=== PATIENT | male | born 1990 | race Hispanic/Latino ===

== ENCOUNTER 2019-07-08 14:00 | Emergency (ER) | payer OTHER ==
[~2019-07-08] VITALS: Ht 180.3 cm; Wt 145.1 kg
[2019-07-08] MEDS ORDERED: IBUPROFEN 200 MG TAB PO STA (14:31)
[2019-07-08] MEDS ORDERED: ALBUTEROL SULF 0.083% NEB SOLN 3 ML NEB NEB STA (14:43)
[2019-07-08] MEDS ORDERED: IPRATROPIUM BROMIDE 0.02% 2.5 ML NEB NEB STA (14:43)
[2019-07-08] MEDS ORDERED: ACETAMINOPHEN 325 MG TAB PO ONE (14:45)
[2019-07-08] MEDS ORDERED: DEXAMETHASONE SOD PHOS 10 MG/1 ML VIAL IM NR (15:00)
[2019-07-08 15:08] LABS: STREPTOCOCCUS GRP A ANTIGEN NEGATIVE (NEGATIVE)
[2019-07-08 15:21] LABS: INFLUENZAE A&B ANTIGEN (RAPID) NEGATIVE (NEGATIVE)
--- NOTE | 2019-07-08 15:36 | NUR ---
notified rt hawa arteaga
--- NOTE | 2019-07-08 15:54 | Diagnostic Imaging Report ---
EXAMINATION: CHEST 2 VIEWS INDICATION: ^COUGH/FEVER/YELLOW PHLEM ^[id number] ^[id number] COMPARISON: None FINDINGS: PA and lateral views TUBES and LINES: None. LUNGS: Lungs are well inflated. Reticular opacities in the left lower lobe. Right upper lobe calcified granuloma. No pulmonary edema. PLEURA: No pleural effusion or pneumothorax. HEART AND MEDIASTINUM: The cardiomediastinal silhouette is unremarkable. BONES AND SOFT TISSUES: No acute osseous lesion. Soft tissues are unremarkable. UPPER ABDOMEN: No free air under the diaphragm. IMPRESSION: Radiographic findings suggestive of left lower lobe pneumonia. Recommend follow-up chest radiograph in 4-6 weeks. Signed by: Dr. Mallory Rod M.D. on 07/08/2019 3:50 PM
--- NOTE | 2019-07-08 16:01 | NUR ---
PATIENT RECEIVING BREATHING TX
[2019-07-08] MEDS ORDERED: SODIUM CHLORIDE 0.9% 1000ML 1,000 ML IV STA (16:06)
[2019-07-08] MEDS ORDERED: AZITHROMYCIN 500MG/NS 250 ML 250 ML IV ONE (16:15)
[2019-07-08] MEDS ORDERED: CEFTRIAXONE SOD 1 GM/NS 50 ML 50 ML IV ONE (16:15)
[2019-07-08 16:32] LABS: BASOPHILS # (AUTO) 0.1 (0.0-0.1); BASOPHILS % 0.3 % (0.0-1.0); EOSINOPHILS # (AUTO) 0.2 (0.0-0.4); EOSINOPHILS % 0.9 % (0.0-6.0); HEMATOCRIT 43.6 % (38.2-49.6); HEMOGLOBIN 15.3 g/dL (14.0-18.0); LYMPHOCYTES # (AUTO) 2.8 (1.0-3.2); LYMPHOCYTES % 17.6 % (18.0-39.1); MEAN CORPUSCULAR HEMOGLOBIN 31.8 pg (28-32); MEAN CORPUSCULAR HGB CONC 35.1 g/dL (31-35); MEAN CORPUSCULAR VOLUME 90.6 fL (81-99); MONOCYTES # (AUTO) 1.7 (0.2-0.8); MONOCYTES % 10.9 % (4.4-11.3); NEUTROPHILS # (AUTO) 11.1 (2.1-6.9); PLATELET COUNT 225 x10e3/uL (140-360); RED BLOOD COUNT 4.81 x10e6/uL (4.3-5.7); RED CELL DISTRIBUTION WIDTH 11.9 % (11.7-14.4)
[2019-07-08 16:57] LABS: ALANINE AMINOTRANSFERASE 185 IU/L (0-55); ALBUMIN 3.6 g/dL (3.5-5.0); ALBUMIN/GLOBULIN RATIO 0.9 (0.8-2.0); ALKALINE PHOSPHATASE 73 IU/L (40-150); ANION GAP 14.4 mmol/L (8-16); BLOOD UREA NITROGEN 8 mg/dL (7-26); BUN/CREATININE RATIO 10 (6-25); CALCIUM 9.3 mg/dL (8.4-10.2); CARBON DIOXIDE 24 mmol/L (22-29); CHLORIDE 101 mmol/L (98-107); CREATININE, SERUM 0.78 mg/dL (0.72-1.25); EST GLOMERULAR FILTRATION RATE > 60 ML/MIN (60-); GLUCOSE 155 mg/dL (74-118); POTASSIUM 3.4 mmol/L (3.5-5.1); SODIUM 136 mmol/L (136-145)
--- NOTE | 2019-07-08 18:56 | NUR ---
PATIENT DISCHARGED BY RAJANI FREIRE R.N.
[2019-07-08 22:18] LABS: EOSINOPHILS % (MANUAL) 1 % (0-7); LYMPHOCYTES % (MANUAL) 19 % (19-48)
[2019-07-08 22:19] LABS: MONOCYTES % (MANUAL) 10 % (3.4-9.0); NEUTROPHILS % (MANUAL) 70 % (40-74); PLATELET ESTIMATE ADEQUATE; PLATELET MORPHOLOGY COMMENT NORMAL
[2019-07-08 22:20] LABS: RBC MORPHOLOGY COMMENT NORMAL
== END 2019-07-08 18:56 | disposition home or self-care (01) ==
LOC: ER 14:02
DX: R50.9 Fever, unspecified (principal); R05 Cough; J15.9 Unspecified bacterial pneumonia
CPT/HCPCS: 36415; 71046; 80053; 83518; 85025; 87040; 87070; 87400; 94640; 99284; J0456; J0696; J1100; J7030

== ENCOUNTER 2021-07-08 15:18 | Emergency (ER) | payer OTHER ==
[~2021-07-08] VITALS: Ht 180.3 cm; Wt 138.3 kg
[2021-07-08] MEDS ORDERED: SODIUM CHLORIDE 0.9% 1000ML 1,000 ML IV STA (15:40)
[2021-07-08 16:06] LABS: BASOPHILS # (AUTO) 0.1 (0.0-0.1); BASOPHILS % 0.6 % (0.0-1.0); EOSINOPHILS # (AUTO) 0.2 (0.0-0.4); HEMATOCRIT 43.3 % (38.2-49.6); HEMOGLOBIN 14.9 g/dL (14.0-18.0); LYMPHOCYTES # (AUTO) 2.3 (1.0-3.2); LYMPHOCYTES % 20.9 % (18.0-39.1); MEAN CORPUSCULAR HGB CONC 34.4 g/dL (31-35); MEAN CORPUSCULAR VOLUME 90.2 fL (81-99); MONOCYTES # (AUTO) 0.8 (0.2-0.8); MONOCYTES % 7.4 % (4.4-11.3); NEUTROPHILS # (AUTO) 7.6 (2.1-6.9); NEUTROPHILS % 68.7 % (38.7-80.0); PLATELET COUNT 272 x10e3/uL (140-360); RED CELL DISTRIBUTION WIDTH 11.5 % (11.7-14.4)
[2021-07-08 16:18] LABS: INR 1.07; PROTHROMBIN TIME 14.1 seconds (11.9-14.5)
[2021-07-08 16:19] LABS: PARTIAL THROMBOPLASTIN TIME 27.9 seconds (23.8-35.5)
[2021-07-08] MEDS: METOPROLOL TARTRATE 25 MG TAB PO ONE ×2 (16:30→18:15)
[2021-07-08 16:31] LABS: ANION GAP 12.5 mmol/L (8-16); CALCIUM 9.1 mg/dL (8.4-10.2); CREATININE, SERUM 0.67 mg/dL (0.72-1.25); POTASSIUM 3.5 mmol/L (3.5-5.1)
[2021-07-08 16:38] LABS: CREATINE KINASE MB 0.3 ng/mL (0-5.0)
[2021-07-08 18:19] LABS: AMPHETAMINES SCREEN,URINE NEGATIVE (NEGATIVE); BENZODIAZEPINES SCREEN,URINE NEGATIVE (NEGATIVE); PHENCYCLIDINE SCREEN,URINE NEGATIVE (NEGATIVE)
[2021-07-08] MEDS ORDERED: IOPAMIDOL 370 MG/ML 200 ML INFUS..BTL INJ ONE (18:22)
[2021-07-08] MEDS ORDERED: SODIUM CHLORIDE 0.9% 50ML 50 ML ONE (18:22)
[2021-07-08 18:32] LABS: AMYLASE 37 U/L (25-125); LIPASE 11 U/L (8-78)
[2021-07-08 18:44] LABS: CREATINE KINASE MB 0.4 ng/mL (0-5.0)
== END 2021-07-08 20:49 | disposition home or self-care (01) ==
LOC: ER 15:41
DX: R07.89 Other chest pain (principal); K92.89 Other specified diseases of the digestive system; K76.0 Fatty (change of) liver, not elsewhere classified; R94.31 Abnormal electrocardiogram [ECG] [EKG]
CPT/HCPCS: 36415; 71045; 74177; 80053; 80307; 82150; 82550; 82553; 83690; 83880; 84484; 85025; 85379; 85610; 85730; 93005; 99284; J7030; Q9967; U0002

== ENCOUNTER 2022-04-11 01:40 | Emergency (ER) | payer OTHER ==
[~2022-04-11] VITALS: Ht 180.3 cm; Wt 138.3 kg
[2022-04-11 01:59] LABS: BASOPHILS # (AUTO) 0.1 (0.0-0.1); BASOPHILS % 0.7 % (0.0-1.0); EOSINOPHILS # (AUTO) 0.3 (0.0-0.4); EOSINOPHILS % 3.5 % (0.0-6.0); HEMATOCRIT 45.4 % (38.2-49.6); HEMOGLOBIN 15.4 g/dL (14.0-18.0); LYMPHOCYTES # (AUTO) 2.6 (1.0-3.2); LYMPHOCYTES % 31.8 % (18.0-39.1); MEAN CORPUSCULAR HEMOGLOBIN 31.6 pg (28-32); MEAN CORPUSCULAR HGB CONC 33.9 g/dL (31-35); MONOCYTES # (AUTO) 0.7 (0.2-0.8); MONOCYTES % 8.2 % (4.4-11.3); NEUTROPHILS # (AUTO) 4.6 (2.1-6.9); NEUTROPHILS % 55.2 % (38.7-80.0); PLATELET COUNT 243 x10e3/uL (140-360); RED BLOOD COUNT 4.88 x10e6/uL (4.3-5.7); RED CELL DISTRIBUTION WIDTH 11.6 % (11.7-14.4)
[2022-04-11 02:12] LABS: ALANINE AMINOTRANSFERASE 19 IU/L (0-55); ALBUMIN 3.7 g/dL (3.5-5.0); ALKALINE PHOSPHATASE 81 IU/L (40-150); ANION GAP 13.8 mmol/L (8-16); BLOOD UREA NITROGEN 15 mg/dL (7-26); BUN/CREATININE RATIO 19 (6-25); CALCIUM 8.9 mg/dL (8.4-10.2); CARBON DIOXIDE 27 mmol/L (22-29); CHLORIDE 104 mmol/L (98-107); CREATINE KINASE 52 IU/L (30-200); CREATININE, SERUM 0.81 mg/dL (0.72-1.25); GLUCOSE 172 mg/dL (74-118); POTASSIUM 3.8 mmol/L (3.5-5.1); SODIUM 141 mmol/L (136-145)
[2022-04-11 02:54] LABS: AMPHETAMINES SCREEN,URINE NEGATIVE (NEGATIVE); BENZODIAZEPINES SCREEN,URINE NEGATIVE (NEGATIVE); CLARITY,URINE CLEAR (CLEAR); COLOR,URINE YELLOW (YELLOW); PHENCYCLIDINE SCREEN,URINE NEGATIVE (NEGATIVE)
[2022-04-11 02:55] LABS: KETONES,URINE NEGATIVE (NEGATIVE); LEUKOCYTE ESTERASE ,URINE NEGATIVE (NEGATIVE); NITRITE,URINE NEGATIVE (NEGATIVE); PROTEIN,URINE DIPSTICK TRACE (NEGATIVE); URINE UROBILINOGEN 1 mg/dL (0.2 - 1)
[2022-04-11 02:56] LABS: BACTERIA,URINE FEW /HPF; EPITHELIAL CELLS,URINE FEW /LPF; RBC,URINE 0-5 /HPF (0-5); WBC,URINE (MAN) 0-5 /HPF (0-5)
[2022-04-11 03:08] LABS: MUCUS,URINE MANY (RARE)
[2022-04-11 03:45] VITALS: BP_SYST 5
== END 2022-04-11 03:00 | disposition home or self-care (01) ==
LOC: ER 01:41
DX: R07.89 Other chest pain (principal); R12 Heartburn; I10 Essential (primary) hypertension; E78.5 Hyperlipidemia, unspecified; F41.9 Anxiety disorder, unspecified
CPT/HCPCS: 36415; 71045; 80053; 80307; 81001; 82550; 82553; 84484; 85025; 93005; 99284; C9113